=== PATIENT | male | born 1935 | race Caucasian/White ===

== ENCOUNTER 2020-01-26 09:01 | Emergency (ER) | payer MEDICARE, SELFPAY ==
[2020-01-26 09:06] VITALS: BP 177/79; PULSE 68; RESP 16; TEMP 36.3; O2SAT 99
--- NOTE | 2020-01-26 09:19 | ED.SKABFB ---
HPI - Skin/Abscess/Foreign Bdy General Chief complaint: Skin/Abscess/Foreign Body Stated complaint: RASH Source: patient Mode of arrival: ambulatory Limitations: no limitations History of Present Illness HPI narrative: 84-year-old male presents to [facility] care with complaints of itchy erythematous rash to his right calf and behind his right ear for the past week. Patient reports that he has had shingles 20 years ago and is concerned that could be shingles again. Patient denies fever, bites, chills, nausea, vomiting or diarrhea. Patient has not tried applying any [id number] medications for his symptoms. MD complaint: rash Onset (ago): week(s) (1) Quality: burning Relieving factors: none Exacerbating factors: none Context: none Associated symptoms: denies other symptoms Treatments prior to arrival: none Related Data Allergies Allergy/AdvReac Type Severity Reaction Status Date / Time No Known Allergies Allergy Verified 10/10/17 06:34 Review of Systems Constitutional: Constitutional: Denies chills, Denies fatigue, Denies fever(s) and Denies weakness Eyes: Eyes: Denies change in vision ENT: Denies dysphagia, Denies epistaxis and Denies sore throat Cardiovascular: Cardiovascular: Denies chest pain, Denies rapid heart rate and Denies slow heart rate Respiratory: Respiratory: Denies cough, Denies dyspnea and Denies wheezing Gastrointestinal: Gastrointestinal: Denies abdominal pain, Denies diarrhea, Denies nausea and Denies vomiting Musculoskeletal: Musculoskeletal: Denies arthralgias and Denies joint swelling Integumentary/Breasts: Skin/Breast: Reports rash Neurologic: Denies dizziness and Denies syncope [facility] Surgical History Surgical History (Updated 01/26/20 @ 09:21 by Eladia García APRN) Knee joint replacement by other means Social History Social History (Updated 01/26/20 @ 09:20 by Eladia García APRN) Smoking status: Never smoker Comments At time of signature, I agree with nursing past medical, surgical, social and family history. There is no relevant family history pertinent to the presenting complaint. Exam Const: General: no acute distress and alert Orientation/consciousness: patient oriented x3 Resp: Effort & Inspection: normal respiratory effort, not labored and not tachypneic Auscultation: clear to auscultation bilaterally Cardio: Rate: regular rate, not bradycardic and not tachycardic Rhythm: regular rhythm Heart sounds: no murmurs Skin: General skin exam: normal color Wounds: no wounds Other: Raised macular papular erythematous rash noted to right calf. There are no vesicles, open wounds or signs of infection noted. Mild erythematous macular /papular rash noted behind right ear. Neuro: General: patient oriented x3, moves all extremities and no meningeal signs Psych: Appearance: grossly normal Mental Status: mental status grossly normal Affect: normal affect Attitude: cooperative Thought content: Yes Normal thought content present Course Vital Signs Vital signs: Vital Signs Temperature 36.3 C L 01/26/20 09:06 Pulse Rate 68 01/26/20 09:06 Respiratory Rate 16 01/26/20 09:06 Blood Pressure 177/79 H 01/26/20 09:06 Pulse Oximetry 99 01/26/20 09:06 Temperature 36.3 C L 01/26/20 09:06 Pulse Rate 68 01/26/20 09:06 Respiratory Rate 16 01/26/20 09:06 Blood Pressure 177/79 H 01/26/20 09:06 Pulse Oximetry 99 01/26/20 09:06 MDM - Skin/Abscess/Foreign Bdy MDM Narrative Medical decision making narrative: Patient reports that he does not want to take oral medications. Patient reports that he prefers an ointment for area of rash. Patient understands that he needs to follow-up with his primary care provider to reevaluate blood pressure. Patient agrees to take medications as prescribed. Patient agrees to proceed the emergency room if symptoms worsen Differential Diagnosis Differential diagnosis: Likely abscess of skin or subcutaneous t
[2020-01-26 09:36] VITALS: BP 164/78
== END 2020-01-26 09:38 | disposition home or self-care (01) ==
PROVIDERS: Emergency Provider Nurse Practitioner Family
DX: R21 Rash and other nonspecific skin eruption (principal); Z96.659 Presence of unspecified artificial knee joint
CPT/HCPCS: 99213; G0463

== ENCOUNTER → 2020-08-18 14:52 | Outpatient (CLI) | payer MEDICARE, SELFPAY ==
--- NOTE | ~2020-08-18 | XR_ITS ---
EXAMINATION: XR knee RT min 4V DATE: 08/18/2020 15:22 INDICATION: Right knee pain TECHNIQUE: Weight bearing anteroposterior and Rao, sunrise, and flexed lateral views of the rig ht knee were obtained COMPARISON: None. FINDINGS: Alignment is normal. No fracture. Subtle chondrocalcinosis in the medial and lateral compartments. M ild joint space narrowing at the medial aspect of the patellofemoral articulation with tiny patellar marginal osteophytes. Joint spaces in the medial and lateral compartments appear relatively preserved . No right knee joint effusion. Soft tissues are unremarkable. IMPRESSION: 1. Chondrocalcinosis at the medial and lateral compartments. 2. Mild patellofemoral osteoarthritis. Reviewed, dictated and finalized at location A.
--- NOTE | ~2020-08-18 | XR_ITS ---
EXAMINATION: XR knee LT min 4V DATE: 08/18/2020 15:22 INDICATION: Left knee pain TECHNIQUE: Weight bearing anteroposterior and Rao, sunrise, and flexed lateral views of the lef t knee were obtained COMPARISON: None. FINDINGS: Left total knee arthroplasty with patellar resurfacing which is well seated in essentially anatomic a lignment with no periprosthetic lucency to suggest loosening or infection. No fracture. Increased den sity in the region of the suprapatellar pouch suggesting synovitis or moderate-sized joint effusion. Atherosclerotic calcifications in the popliteal and distal femoral arteries. IMPRESSION: 1. Left total knee arthroplasty with no acute osseous abnormality. 2. Suggestion of synovitis versus moderate joint effusion at the suprapatellar pouch. Reviewed, dictated and finalized at location A.
== END ==
PROVIDERS: Visit Provider Nurse Practitioner Adult Health
DX: M25.561 Pain in right knee (principal); M25.562 Pain in left knee; M11.261 Other chondrocalcinosis, right knee; M17.11 Unilateral primary osteoarthritis, right knee; Z96.652 Presence of left artificial knee joint
CPT/HCPCS: 73564

== ENCOUNTER 2022-01-16 11:10 | Emergency (ER) | payer MEDICARE, SELFPAY ==
[2022-01-16] VITALS (21 sets, daily range): BP systolic 115–146; BP diastolic 43–101; PULSE 63–90; RESP 12–23; TEMP 36.6; O2SAT 95–98
--- NOTE | ~2022-01-16 | XR_ITS ---
XR lumbar spine 2-3V 01/16/2022 12:49 Indication: Back pain Procedure: 3 views lumbar spine Comparison: No prior studies for comparison. Findings: There is disc narrowing at all lumbar levels. There are prominent ventral osteophytes in th e upper lumbar spine. There is atherosclerosis and ectasia of the aorta. There is moderate lower lumb ar facet hypertrophy. No acute fracture or traumatic malalignment. Sacral foramen are symmetric. Impression: 1: No acute abnormality of the lumbar spine. 2: Moderate lumbar spondylosis. Reviewed, dictated and finalized at location B. Impression: 1: No acute abnormality of the lumbar spine. 2: Moderate lumbar spondylosis.
--- NOTE | ~2022-01-16 | CT_ITS ---
EXAMINATION: CT brain wo con INDICATION: Weakness COMPARISON: None TECHNIQUE: Standard unenhanced head CT. The dose-length product (DLP) was 681.00 mGy-cm. The mA was a djusted according to patient size. Iterative reconstruction technique was employed. FINDINGS: There is no acute intraparenchymal hemorrhage. No evidence of mass lesion. No evidence of a cute infarction. There is moderate periventricular and subcortical hypodensity probably related to sm all vessel ischemic disease. There is moderate prominence of the sulci and ventricles related to cere bral atrophy. Intracranial calcified cerebral atherosclerosis is noted. There are no extra-axial aria ections. There is no mass effect or midline shift. The orbits and soft tissues are unremarkable. Ther e is mild mucosal thickening of the paranasal sinuses. An old right frontal craniotomy defect is note d IMPRESSION: 1. No acute intracranial abnormality. 2. Age related findings. Reviewed, dictated and finalized at location A.
--- NOTE | ~2022-01-16 | XR_ITS ---
EXAMINATION: XR chest 2V DATE: 01/16/2022 12:49 INDICATION: Weakness TECHNIQUE: Frontal and lateral views of the chest are obtained COMPARISON: None available FINDINGS: There are patchy bilateral opacities throughout all lung zones. No pleural effusion or pneu mothorax. The cardiomediastinal silhouette is normal. There are bridging osteophytes at multiple leve ls in the spine, consistent with diffuse idiopathic skeletal hyperostosis (DISH). IMPRESSION: 1. Patchy opacities throughout all lung zones, consistent with atelectasis versus pneumonia versus pu lmonary edema. Reviewed, dictated and finalized at location A. IMPRESSION: 1. Patchy opacities throughout all lung zones, consistent with atelectasis vers us pneumonia versus pulmonary edema.
--- NOTE | 2022-01-16 11:14 | ECG_ITS ---
Measurements Intervals [place] Rate: 69 P: 53 MS: 170 QRS: 58 QRSD: 154 T: 41 QT: 413 QTc: 443 Interpretive Statements SINUS RHYTHM VENTRICULAR PREMATURE COMPLEX INTERMITTENT RIGHT BUNDLE BRANCH BLOCK ABNORMAL ECG NO PREVIOUS ECG AVAILABLE FOR COMPARISON Electronically Signed On 01-16-2022 11:53:10 CDT by Jean Clarke D.O.
[2022-01-16 11:52] LABS: Basophils Percent Auto 0.3 % (0.2-1.2); Eosinophils Absolute Auto 0.4 K/mm3 (0-0.3); Eosinophils Percent Auto 3.8 % (0-4.4); Hemoglobin 15.4 g/dL (14.0-18.0); Immature Granulocyte Absolute 0.04 K/mm3 (0.00-0.031); Immature Granulocyte Percent A 0.3 % (0-0.5); Lymphocytes Absolute Auto 1.28 K/mm3 (0.9-3.2); Lymphocytes Percent Auto 11.2 % (18.3-44.2); Mean Corpuscular HGB Conc 33.5 g/dl (32-36); Mean Corpuscular Hemoglobin 30.1 pg (26-34); Mean Corpuscular Volume 89.8 fl (80-100); Monocytes Absolute Auto 1.2 K/mm3 (0.1-0.6); Monocytes Percent Auto 10.1 % (2.6-8.5); Neutrophils Absolute Auto 8.5 K/mm3 (1.3-6.7); Neutrophils Percent Auto 74.3 % (45.5-73.1); Platelet Count Result 287 k/mm3 (150-375); Red Blood Count 5.12 M/mm3 (4.6-6.20); White Blood Count 11.4 K/mm3 (4.5-10.0)
[2022-01-16 11:55] LABS: Appearance Urine Clear (Clear); Bilirubin Urine 1+ (Negative); Blood Urine Negative (Negative); Color Urine Yellow (Yellow); Glucose Urine UA Negative (Negative); Ketones Urine 2+ mg/dL (Negative); Leukocyte Esterase Ur Negative LEU/UL (Negative); Nitrate Urine Negative (Negative); Protein Urine Trace mg/dL (Negative); Specific Grav Ur >= 1.030 (1.001-1.035)
[2022-01-16 12:02] LABS: Bacteria Urine Trace /hpf; Mucus Urine Rare /lpf; WBC Urine 0-3 /hpf
[2022-01-16 12:05] LABS: Add Urine Microscopic? YES
[2022-01-16 12:11] LABS: Alanine Aminotransferase 32 U/L (6-50); Alkaline Phosphatase 38 U/L (38-126); Anion Gap 10 mmol/L (8-16); Aspartate Amino Transferase 32 U/L (17-59); Bilirubin,Total 0.6 mg/dL (0.2-1.3); Blood Urea Nitrogen 24 mg/dL (9-20); Calcium 9.3 mg/dL (8.4-10.2); Carbon Dioxide 27 mmol/L (22-30); Chloride 97 mmol/L (98-107); Estimated CRCL calculation 66 ml/min; Estimated Glomerular Filt Rate > 60; Glucose 167 mg/dL (65-110); Sodium 134 mmol/L (137-145)
--- NOTE | 2022-01-16 12:22 | ED.WEAKNESS ---
HPI - Weakness General Chief complaint: Weakness Stated complaint: weakness, falling Time Seen by Provider: 01/16/22 11:59 Source: patient, family and RN notes reviewed Mode of arrival: ambulatory Limitations: dementia History of Present Illness HPI Narrative: This is an 86 year old male who presents from home for evaluation of frequent falls. His states patient has fallen 3 times in the past 1 week. Patient is suppose to use walker or can to ambulate but he does not use it. Today, he states he was trying to get out of bed and he slid down to the floor. He states he has been having difficulty getting himself up after falling over the past 2 weeks. He states he hits his head every day. He has chronic ambulation difficulty due to chronic shoulder and knee issues. Patient denies headache, chest pain, cough, nausea, vomiting, fever or chills. He does not have any complaints. His states he was complaining of back pain from falling earlier. She thinks he is sliding out of his chair and bed due to weakness. She thinks he needs in home physical therapy. Related Data Home Medications Medication Instructions Recorded Confirmed A To Z Multivitamin 01/16/22 Adult Low Dose Aspirin 01/16/22 B Complex 01/16/22 Baby Vitamin D3 01/16/22 amlodipine 10 mg tablet mg 01/16/22 donepezil 10 mg tablet 10 mg PO HS 01/16/22 finasteride 5 mg tablet mg 01/16/22 lisinopril 40 mg tablet 40 mg PO DAILY 01/16/22 quetiapine 25 mg tablet mg 01/16/22 rosuvastatin 10 mg tablet mg 01/16/22 sertraline 100 mg tablet mg 01/16/22 tamsulosin 0.4 mg capsule mg PO 01/16/22 trospium 20 mg tablet mg 01/16/22 Allergies Allergy/AdvReac Type Severity Reaction Status Date / Time No Known Allergies Allergy Verified 01/16/22 11:25 Review of Systems Review of Systems: All systems reviewed & are unremarkable except as noted in HPI and below Constitutional: Constitutional: Denies chills, Denies fatigue, Denies fever(s) and Reports weakness ENT: Denies nasal congestion and Denies sore throat Cardiovascular: Cardiovascular: Denies chest pain Respiratory: Respiratory: Denies chest congestion and Denies cough Gastrointestinal: Gastrointestinal: Denies abdominal pain, Denies nausea and Denies vomiting Genitourinary: Genitourinary: Denies hematuria and Denies oliguria [facility] Past Medical History Medical History (Updated 01/16/22 @ 14:39 by Vira Sher MD) Dementia Hypertension Prostate cancer Surgical History Surgical History (Updated 01/26/20 @ 09:21 by Eladia García APRN) Knee joint replacement by other means Social History Social History (Updated 01/26/20 @ 09:20 by Eladia García APRN) Smoking status: Never smoker Exam Const: General: no acute distress and alert Nutritional Appearance: well nourished Orientation/consciousness: patient oriented x3 Limitations: no limitations HENMT: Head: normal to inspection Face and sinus: normal facial exam Mouth: Yes Normal oral and palatal mucosa present, Yes lip normal and Yes moist mucous membranes Eyes: EOM: EOMs intact bilaterally Neck: Neck: normal visual inspection Chest: Chest palpation & inspection: normal inspection of the chest Resp: Effort & Inspection: normal respiratory effort Auscultation: clear to auscultation bilaterally Cardio: Rate: regular rate Rhythm: regular rhythm Heart sounds: no murmurs GI: GI Palp: Yes Soft to palpation, No Tenderness to palpation present (GI), No Guarding due to palpation present (GI) and No Rigid due to palpation Auscultation: normal bowel sounds Skin: General skin exam: normal color Rashes: no rashes Neuro: General: patient oriented x3, moves all extremities and CN's II-XI intact bilaterally Speech: normal speech Extrem: General: normal to inspection Psych: Mental Status: mental status grossly normal Affect: normal affect Attitude: cooperative Course Reevaluation(s) Reevaluation #1
--- NOTE | 2022-01-16 12:32 | PC.NURSE ---
Patient to radiology
[2022-01-16] MEDS: SODIUM CHLORIDE 0.9% IV 1,000 ML 999 ML IV CONT (13:08)
[2022-01-16 13:46] LABS: SARS-CoV-2 RNA PCR Negative
[2022-01-16 14:08] LABS: NT Pro B Type Natriuretic Pept 114 pg/mL (5-100)
--- NOTE | 2022-01-16 14:19 | PC.NURSE ---
Patient ambulated with walker with no difficulty with pulse oximeter on finger. Oxygen ranged from 91%-93% while ambulating. EDP Nikky notified.
--- NOTE | 2022-01-16 14:34 | PCCCNOTE ---
met with patient and bedside, was requesting home health PT for patient. patient's primary is at the [place], CC prvided with the [place] home health line [phone], and informed that the [place] doctor would need to provided an order to the home health. CC will continue to follow for any needs that may arise.
== END 2022-01-16 15:02 | disposition home or self-care (01) ==
PROVIDERS: Emergency Medicine; Emergency Provider General Practice
DX: R53.1 Weakness (principal); J18.9 Pneumonia, unspecified organism; E86.0 Dehydration; R29.6 Repeated falls; Z20.822 Contact with and (suspected) exposure to COVID-19; F03.90 Unspecified dementia, unspecified severity, without behavioral disturbance, psychotic disturbance, mood disturbance, and anxiety; I10 Essential (primary) hypertension; Z85.46 Personal history of malignant neoplasm of prostate; Z79.82 Long term (current) use of aspirin; Z96.659 Presence of unspecified artificial knee joint; M47.816 Spondylosis without myelopathy or radiculopathy, lumbar region; I49.3 Ventricular premature depolarization; I45.10 Unspecified right bundle-branch block
CPT/HCPCS: 36415; 70450; 71046; 72100; 80053; 81001; 83880; 85025; 93005; 96360; 96361; 99284; C9803; J7030; U0003; U0005

== ENCOUNTER 2022-07-15 14:02 | Emergency (ER) | payer MEDICARE, SELFPAY ==
--- NOTE | ~2022-07-15 | XR_ITS ---
XR knee RT 3V DATE: 07/15/2022 14:44 INDICATION: Lateral pain and swelling. No injury. TECHNIQUE: 3 views of right knee COMPARISON: August 18, 2020 right knee FINDINGS: Chondrocalcinosis of medial and lateral compartments. There is mild loss of height of the m edial compartment joint space. There is periarticular spurring of the patella. No fracture or dislocation or joint effusion. No periosteal reaction or bone destruction. Osteopenia. There is aortic calcification of femoral and popliteal arteries. IMPRESSION: Chondrocalcinosis Mild osteoarthritis Mild osteopenia Reviewed, dictated and finalized at location A.
[2022-07-15 14:08] VITALS: BP 91/59; PULSE 67; RESP 18; TEMP 36.5; O2SAT 96
[2022-07-15 14:28] LABS: Basophils Absolute Auto 0.1 K/mm3 (0.0-0.1); Basophils Percent Auto 0.6 % (0.2-1.2); Eosinophils Absolute Auto 0.1 K/mm3 (0-0.3); Eosinophils Percent Auto 1.1 % (0-4.4); Hematocrit 40.1 % (42.0-52.0); Hemoglobin 13.2 g/dL (14.0-18.0); Immature Granulocyte Absolute 0.03 K/mm3 (0.00-0.031); Immature Granulocyte Percent A 0.3 % (0-0.5); Lymphocytes Absolute Auto 2.44 K/mm3 (0.9-3.2); Lymphocytes Percent Auto 25.8 % (18.3-44.2); Mean Corpuscular HGB Conc 32.9 g/dl (32-36); Mean Corpuscular Hemoglobin 28.9 pg (26-34); Mean Corpuscular Volume 87.9 fl (80-100); Mean Platelet Volume 9.3 fl (7.4-10.4); Monocytes Absolute Auto 0.9 K/mm3 (0.1-0.6); Monocytes Percent Auto 9.4 % (2.6-8.5); Neutrophils Percent Auto 62.8 % (45.5-73.1); Platelet Count Result 261 k/mm3 (150-375); Red Blood Count 4.56 M/mm3 (4.6-6.20); Red Cell Distribution Width 13.6 % (11.5-14.5); White Blood Count 9.5 K/mm3 (4.5-10.0)
[2022-07-15 14:38] LABS: Anion Gap 8 mmol/L (8-16); Blood Urea Nitrogen 20 mg/dL (9-20); Calcium 9.3 mg/dL (8.4-10.2); Carbon Dioxide 26 mmol/L (22-30); Chloride 105 mmol/L (98-107); Estimated CRCL calculation 59 ml/min; Estimated Glomerular Filt Rate > 60; Glucose 183 mg/dL (65-110); Potassium 4.3 mmol/L (3.4-5.0); Sodium 139 mmol/L (137-145)
[2022-07-15 14:43] LABS: INR 1.2; Prothrombin Time 14.4 Seconds (11.1-14.7)
[2022-07-15 14:44] LABS: Partial Thromboplastin Time 26.4 SECONDS (22.3-36.8)
[2022-07-15 16:39] VITALS: BP 121/89; PULSE 105; RESP 16; O2SAT 100
--- NOTE | 2022-07-15 16:45 | ED.EXTPRO ---
HPI - Extremity Problem General Chief complaint: Extremity Problem,Nontraumatic Stated complaint: RLE PAIN AND SWELLING Time Seen by Provider: 07/15/22 17:05 Source: patient Mode of arrival: ambulatory Limitations: no limitations History of Present Illness HPI Narrative: 86 years old white female came to the emergency room because of pain at the back of right knee the last few days. He denies any fever, chills, nausea, vomiting, trauma, shortness of breath or chest pain. Related Data Home Medications Medication Instructions Recorded Confirmed A To Z Multivitamin 01/16/22 Adult Low Dose Aspirin 01/16/22 B Complex 01/16/22 Baby Vitamin D3 01/16/22 amlodipine 10 mg tablet mg 01/16/22 donepezil 10 mg tablet 10 mg PO HS 01/16/22 finasteride 5 mg tablet mg 01/16/22 lisinopril 40 mg tablet 40 mg PO DAILY 01/16/22 quetiapine 25 mg tablet mg 01/16/22 rosuvastatin 10 mg tablet mg 01/16/22 sertraline 100 mg tablet mg 01/16/22 tamsulosin 0.4 mg capsule mg PO 01/16/22 trospium 20 mg tablet mg 01/16/22 Allergies Allergy/AdvReac Type Severity Reaction Status Date / Time No Known Allergies Allergy Verified 07/15/22 14:08 Review of Systems Review of Systems: All systems reviewed & are unremarkable except as noted in HPI and below PMFSH Past Medical History Medical History Dementia Hypertension Prostate cancer Surgical History Surgical History Knee joint replacement by other means Social History Social History Smoking status: Never smoker Exam Narrative: General appearance: Well-developed, well-nourished Skin: Normal color Head: Normocephalic, nontraumatic Eyes: Clear conjunctiva ENT: Oropharynx normal, ears normal, nose normal Neck: Supple, nontender Chest and respiratory: Airway patent, no respiratory distress, no accessory muscle use Heart: Regular rate/rhythm Abdomen: Soft, nontender, no organomegaly, quiet bowel sounds Vascular: Normal peripheral pulses, normal capillary refill. Musculoskeletal: Right lower extremity showed mild to moderate tenderness medial side of the right knee posteriorly, no bruises, no swelling or rash. 2+ edema lower extremity below knees bilaterally. 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 Date: 07/15/22 Time: 18:46 Vital Signs Vital signs: Vital Signs Temperature 36.5 C 07/15/22 14:08 Pulse Rate 67 07/15/22 14:08 Respiratory Rate 18 07/15/22 14:08 Blood Pressure 91/59 L 07/15/22 14:08 Pulse Oximetry 96 07/15/22 14:08 Temperature 36.5 C 07/15/22 14:08 Pulse Rate 105 H 07/15/22 16:39 Respiratory Rate 16 07/15/22 16:39 Blood Pressure 121/89 07/15/22 16:39 Pulse Oximetry 100 07/15/22 16:39 MDM - Extremity (Nontraumatic) MDM Narrative Medical decision making narrative: Patient presents with pain at the distal right thigh noticed in the last few days. Physical examination showed diffuse tenderness at the back of the right thigh medial to right knee and posteriorly. No bruises, no swelling. Differential diagnosis include musculoskeletal, deep vein thrombosis. D-dimer is 1.2, venous Doppler is not available at this time. Lovenox 1 mg/kg given, patient will come back
--- NOTE | 2022-07-15 16:56 | ECG_ITS ---
Measurements Intervals [place] Rate: 94 P: [place]: 0 QRS: 57 QRSD: 164 T: -38 QT: 383 QTc: 479 Interpretive Statements ATRIAL FLUTTER/TACHYCARDIA RIGHT BUNDLE BRANCH BLOCK ABNORMAL ECG COMPARED TO ECG 01/16/2022 11:19:03 ATRIAL FLUTTER NOW PRESENT Electronically Signed On 07-15-2022 20:21:18 CDT by Jean Clarke D.O.
[2022-07-15 17:54] LABS: D Dimer 1.21 ug/mL (<0.48)
[2022-07-15] MEDS: ENOXAPARIN 80 MG/0.8 ML SYRINGE SUB-Q (19:14)
[2022-07-15 19:18] VITALS: BP 107/68; PULSE 91; RESP 16; O2SAT 99
== END 2022-07-15 19:19 | disposition home or self-care (01) ==
PROVIDERS: Preventive Medicine Aerospace Medicine; Emergency Provider Emergency Medicine
DX: M25.561 Pain in right knee (principal); R60.0 Localized edema; R79.1 Abnormal coagulation profile; F03.90 Unspecified dementia, unspecified severity, without behavioral disturbance, psychotic disturbance, mood disturbance, and anxiety; I10 Essential (primary) hypertension; Z85.46 Personal history of malignant neoplasm of prostate; Z96.659 Presence of unspecified artificial knee joint; M17.11 Unilateral primary osteoarthritis, right knee; M85.88 Other specified disorders of bone density and structure, other site; M11.261 Other chondrocalcinosis, right knee; I48.92 Unspecified atrial flutter; R00.0 Tachycardia, unspecified; I45.10 Unspecified right bundle-branch block
CPT/HCPCS: 36415; 73562; 80048; 85025; 85380; 85610; 85730; 93005; 96372; 99283; J1650

== ENCOUNTER 2022-07-16 14:17 | Outpatient (CLI) | payer MEDICARE, SELFPAY ==
--- NOTE | ~2022-07-16 | US_ITS ---
EXAMINATION: US venous doppler LE RT DATE: 07/16/2022 14:57 INDICATION: Right lower extremity pain TECHNIQUE: Braga scale images without and with compression and Doppler images of the right lower extre mity veins were obtained. COMPARISON: None FINDINGS: The right common femoral vein, profunda femoral vein, femoral vein, popliteal vein, peronea l trunk, posterior tibial veins, and greater saphenous vein are patent. IMPRESSION: 1. Patent right lower extremity veins. No evidence of deep venous thrombosis. Reviewed, dictated and finalized at location F.
== END 2022-07-16 14:18 | disposition home or self-care (01) ==
PROVIDERS: Visit Provider Emergency Medicine
DX: M79.661 Pain in right lower leg (principal)
CPT/HCPCS: 93971

== ENCOUNTER 2022-08-10 11:58 | Emergency (ER) | payer MEDICARE, SELFPAY ==
--- NOTE | ~2022-08-10 | CT_ITS ---
EXAMINATION: CT lumbar spine wo con DATE: 08/10/2022 12:46 INDICATION: Low back pain. Falls. TECHNIQUE: Computed tomography (CT) of the lumbar spine was performed without intravenous contrast. A utomated exposure control and iterative reconstruction technique were employed. Exam dose: 1144.02 m Gy-cm total exam DLP. COMPARISON: None FINDINGS: Diffuse idiopathic skeletal hyperostosis of the thoracolumbar spine. There is osteopenia. No fracture or bone destruction of the lower thoracic or lumbar spine. There is degenerative change at the apophyseal joints, particularly at L4-5 and L5-S1, associated min imal grade 1 anterolisthesis at L4-5.. Moderate lumbar degenerative disc disease. There is extensive calcification of the abdominal aorta and iliac arteries in addition to calcificati on of the celiac, superior mesenteric and renal arteries. Abdominal aortic caliber is within normal r dre. IMPRESSION: Diffuse idiopathic skeletal hyperostosis of the thoracolumbar spine, moderate degenerati ve disc disease of the lumbar spine Degenerative changes apophyseal joints of the lumbosacral spine with associated minimal grade 1 anter olisthesis at L4-5 Reviewed, dictated and finalized at Location A. Reviewed, dictated and finalized at location B. IMPRESSION: Diffuse idiopathic skeletal hyperostosis of the thoracolumbar spin e, moderate degenerative disc disease of the lumbar spine Degenerative changes apophyseal joints of the lumbosacral spine with associated minimal grade 1 anterolisthesis at L4-5
--- NOTE | ~2022-08-10 | CT_ITS ---
EXAMINATION: CT pelvis wo con DATE: 08/10/2022 12:48 INDICATION: Pelvic pain. TECHNIQUE: Computed tomography (CT) of the pelvis was performed without intravenous contrast. The dos e-length product was 477.40 mGy-cm. Automated exposure control and iterative reconstruction technique were employed. COMPARISON: None FINDINGS: There is moderate osteoarthritis of the hips. No acute fracture or traumatic malalignment. There is a 3.4 cm right renal cyst, partially visualized. There is mild ectasia of the aorta measurin g up to 2.7 cm, although incompletely visualized. Nonobstructive bowel pattern. There is fecal impact ion of the rectum. No free air or free fluid. No lymphadenopathy. IMPRESSION: 1. No acute fracture. Reviewed, dictated and finalized at location A. IMPRESSION: 1. No acute fracture.
--- NOTE | ~2022-08-10 | CT_ITS ---
EXAMINATION: CT cervical spine wo con DATE: 08/10/2022 12:43 INDICATION: Fall. Head and neck injury. TECHNIQUE: Computed tomography (CT) of the cervical spine was performed without intravenous contrast. Automated exposure control and iterative reconstruction technique were employed. Exam dose: 454.60 mGy-cm total exam DLP. COMPARISON: None FINDINGS: C1 and C2 are normally aligned and the odontoid process is intact. Is prominent anterior sp urring at C2-3 and C5-6, C6-7, C7-T1. No fracture or dislocation or locked facet or prevertebral soft tissue swelling. There is degenerative change at the apophyseal joints throughout the cervical spine. There is uncover tebral joint spurring is noted on the left at C3-4, to a lesser extent on the right at C3-4 IMPRESSION: Moderate cervical spondylosis; no fracture or dislocation, locked facet or prevertebral soft tissue swelling Reviewed, dictated and finalized at [facility]. Reviewed, dictated and finalized at location B.
--- NOTE | ~2022-08-10 | CT_ITS ---
EXAMINATION: CT brain wo con DATE: 08/10/2022 12:43 INDICATION: Multiple falls. Head injury. History of dementia. TECHNIQUE: Computed tomography (CT) of the head was performed without intravenous contrast. The mA wa s adjusted according to patient size. Iterative reconstruction technique was employed. Exam dose: 75 6.67 mGy-cm total exam DLP. COMPARISON: 01/16/2022 CT brain FINDINGS: Rose hole high over the right parietal convexity. No skull fracture or bone destruction. There is central and cortical cerebral and cerebellar atrophy. No intracranial mass lesion or hemorrhage or cerebrovascular accident is evident. No midline shift or mass effect. No subdural or epidural hematoma. Contents are unremarkable. Paranasal sinuses and mastoid air cells are unremarkable. IMPRESSION: Central and cortical cerebral and cerebellar atrophy No acute intracranial finding Troy hole high over the right parietal convexity; no skull fracture Reviewed, dictated and finalized at [facility]. Reviewed, dictated and finalized at location B.
[2022-08-10 12:05] VITALS: BP 154/81; PULSE 103; PULSE 99; RESP 12; RESP 14; TEMP 36.6; O2SAT 100; O2SAT 96
--- NOTE | 2022-08-10 12:26 | ED.GENADULT ---
HPI - General Adult General Chief complaint: Fall Stated complaint: fall Time Seen by Provider: 08/10/22 12:14 History of Present Illness HPI narrative: 86-year-old male with history of dementia and history of frequent falls presented to the emergency department for evaluation after having a ground-level fall and complaining of lower back pain. Patient presented to the ED by EMS for evaluation of lower back pain. Patient also has multiple skin tears. Patient is unsure of when the fall was but the skin tears appear fresh. When family arrived they did confirm that the patient has had falls today. Related Data Home Medications Medication Instructions Recorded Confirmed A To Z Multivitamin 01/16/22 Adult Low Dose Aspirin 01/16/22 B Complex 01/16/22 Baby Vitamin D3 01/16/22 amlodipine 10 mg tablet mg 01/16/22 donepezil 10 mg tablet 10 mg PO HS 01/16/22 finasteride 5 mg tablet mg 01/16/22 lisinopril 40 mg tablet 40 mg PO DAILY 01/16/22 quetiapine 25 mg tablet mg 01/16/22 rosuvastatin 10 mg tablet mg 01/16/22 sertraline 100 mg tablet mg 01/16/22 tamsulosin 0.4 mg capsule mg PO 01/16/22 trospium 20 mg tablet mg 01/16/22 Allergies Allergy/AdvReac Type Severity Reaction Status Date / Time No Known Allergies Allergy Verified 08/10/22 12:10 Review of Systems Review of Systems: All systems reviewed & are unremarkable except as noted in HPI and below PMFSH Past Medical History Medical History Dementia Hypertension Prostate cancer Surgical History Surgical History Knee joint replacement by other means Social History Social History Smoking status: Never smoker Exam Narrative: APPEARANCE: Well appearing, no pain, no distress, well-nourished. HEAD: normocephalic, atraumatic. EYES: PERRLA/EOMI, conjunctivae clear. NOSE: Normal no drainage NECK: Supple. No adenopathy, no masses. RESPIRATORY: Airway patent, respirations nonlabored. Clear to auscultation bilaterally, no rales, rhonchi, wheezing. CARDIOVASCULAR: Regular rate and rhythm without murmurs rubs or gallops. ABDOMINAL: Soft, nontender, nondistended, normal bowel sounds MUSCULOSKELETAL: Moves all extremities. Strength/ROM intact, No edema, No calf tenderness. Lower back tenderness to palpation. NEURO: Alert. Cranial nerves II through XII intact. Good gait. Good coordination SKIN: Skin tears to right hand and right forearm, and left forearm PSYCHIATRIC: Normal affect/mood. Course Course Emergency Course: 86-year-old male presented to the ED for evaluation of lower back pain and skin tears. Skin tears were repaired as described in the procedure note. Patient had negative CTs of the head cervical spine lumbar spine and pelvis. Patient was able to ambulate at his baseline. Patient family were updated on the results of the imaging and patient was comfortable with the plan for discharge to home. Vital Signs Vital signs: Vital Signs Temperature 97.8 F 08/10/22 12:05 Pulse Rate 103 H 08/10/22 12:05 Respiratory Rate 12 08/10/22 12:05 Blood Pressure 154/81 H 08/10/22 12:05 Pulse Oximetry 100 08/10/22 12:05 Oxygen Delivery Room Air 08/10/22 12:05 Temperature 97.8 F 08/10/22 12:05 Pulse Rate 96 08/10/22 13:46 Respiratory Rate 14 08/10/22 13:46 Blood Pressure 159/86 H 08/10/22 13:46 Pulse Oximetry 98 08/10/22 13:46 Oxygen Delivery Room Air 08/10/22 12:05 Procedures Laceration Laceration 1: Site: hand Side (If applicable): right Size (cm): 3 Description: flap Depth: simple, single layer ====== Skin Level ====== Skin layer closed with: steri strips ====== Subcutaneous Layer ====== ====== Muscle Layer ====== ====== Tendon Layer ====== Laceration 2: Site: hand Side (If
[2022-08-10 13:08] VITALS: BP 136/93; PULSE 99; RESP 14; O2SAT 99
[2022-08-10 13:46] VITALS: BP 159/86; PULSE 96; RESP 14; O2SAT 98
[2022-08-10] MEDS: ACETAMINOPHEN 500 MG TABLET 1000 MG PO (15:01)
== END 2022-08-10 15:00 | disposition home or self-care (01) ==
PROVIDERS: Emergency Provider Emergency Medicine
DX: S39.92XA Unspecified injury of lower back, initial encounter (principal); S61.411A Laceration without foreign body of right hand, initial encounter; S51.811A Laceration without foreign body of right forearm, initial encounter; S51.812A Laceration without foreign body of left forearm, initial encounter; F03.90 Unspecified dementia, unspecified severity, without behavioral disturbance, psychotic disturbance, mood disturbance, and anxiety; R29.6 Repeated falls; I10 Essential (primary) hypertension; Z85.46 Personal history of malignant neoplasm of prostate; Z96.659 Presence of unspecified artificial knee joint; M47.812 Spondylosis without myelopathy or radiculopathy, cervical region; M48.10 Ankylosing hyperostosis [Forestier], site unspecified; M51.36 Other intervertebral disc degeneration, lumbar region; W06.XXXA Fall from bed, initial encounter
CPT/HCPCS: 70450; 72125; 72131; 72192; 99284; A9270